=== PATIENT | female | born 1955 | race Two or more races ===

== ENCOUNTER 2017-02-17 22:15 | Emergency (ER) | payer MEDICARE, OTHER ==
[~2017-02-17] VITALS: Ht 165.1 cm; Wt 55.3 kg
--- NOTE | 2017-02-17 22:20 | NUR ---
PT BREATHING EFFORTLESSLY ON ROOM AIR, PT PER EMS HAD A SYNCOPAL EPSIODE IN THE BATHROOM PRIOR TO ARRIVAL, PT HAS A LAC OVER HER LEFT EYEBROW AND PER EMS FAMILY STATES THEY SAW HER TAKE HER PAIN PILLS BUT PATIENT CANT RECOUNT HOW MANY SHE TOOK, PT ON MONITOR, IV PLACED, LABS DRAWN, MADE AWARE WILL CONTINUE TO MONITOR.
[2017-02-17] MEDS ORDERED: TDAP [DIPH/PERTUSSIS/TET] 0.5 ML VIAL IM ONE ×2 (22:30→23:40)
[2017-02-17] MEDS ORDERED: IV NS 0.9% 500 ML BAG IV ONE (22:30)
[2017-02-17 22:58] LABS: BASOPHILS % (AUTO) 0.8 % (0.0-2.0); EOSINOPHILS % (AUTO) 1.9 % (0.0-6.0); HEMATOCRIT 37 % (33-45); HEMOGLOBIN 12.5 g/dL (11.5-14.8); LYMPHOCYTES # (AUTO) 1.3 /CMM (0.8-4.8); LYMPHOCYTES % (AUTO) 56.3 % (20.0-44.0); MEAN CORPUSCULAR HEMOGLOBIN 34 PG (26.0-33.0); MEAN CORPUSCULAR HGB CONC 34 g/dl (31.0-36.0); MEAN CORPUSCULAR VOLUME 99 fL (82-100); MONOCYTES # (AUTO) 0.3 /CMM (0.1-1.30); MONOCYTES % (AUTO) 12.4 % (2.0-12.0); NEUTROPHILS # (AUTO) 0.7 /CMM (1.8-8.9); NEUTROPHILS % (AUTO) 28.6 % (43.0-81.0); PLATELET COUNT (AUTO) 118 /CMM (150-450); RDW COEFFICIENT OF VARIATION 14.4 (11.5-15.0); RED BLOOD CELL COUNT(AUTO) 3.72 MIL/uL (4.0-5.2); WHITE BLOOD COUNT (AUTO) 2.3 K/uL (4.3-11.0)
--- NOTE | 2017-02-17 23:16 | NUR ---
PT TO CT.
[2017-02-17 23:23] LABS: TROPONIN I < 0.017 ng/mL (0.00-0.056)
[2017-02-17 23:25] LABS: ALANINE AMINOTRANSFERASE 14 U/L (12-78); ALBUMIN 3.2 g/dL (3.4-5.0); ALCOHOL, BLOOD < 3 mg/dL (0-0); ALKALINE PHOSPHATASE 83 U/L (46-116); ASPARTATE AMINOTRANSFERASE 14 U/L (15-37); BILIRUBIN,DIRECT 0.1 mg/dL (0.0-0.2); BILIRUBIN,TOTAL 0.2 mg/dL (0.2-1.0); CALCIUM, SERUM 8.9 mg/dL (8.5-10.1); CARBON DIOXIDE 28 mmol/L (21-32); CHLORIDE 105 mmol/L (98-107); GLUCOSE 168 mg/dL (74-106); POTASSIUM 4.1 mmol/L (3.5-5.1); SODIUM SERUM 138 mmol/L (136-145); TOTAL PROTEIN, SERUM 6.1 g/dL (6.4-8.2); UREA NITROGEN, BLOOD 31 mg/dL (7-18)
[2017-02-17 23:52] LABS: LYMPHOCYTES % (MANUAL) 57 % (16-48); MONOCYTES % (MANUAL) 12 % (0-11.0); NEUTROPHILS % (MANUAL) 31 (42-76)
[2017-02-18 00:08] LABS: INR 0.96 (0.87-1.13)
--- NOTE | 2017-02-18 00:30 | NUR ---
PT SLEEPING IN NAD, VSS WILL CONTINUE TO MONITOR.
--- NOTE | 2017-02-18 02:51 | NUR ---
PT IS AT BEDSIDE, PT VSS, PT IS STARTING TO IMPROVE AND WAKE UP, PT REFUSING TO GIVE URINE AT THIS TIME, MD MADE AWARE WILL CONTINUE TO MONITOR.
--- NOTE | 2017-02-18 03:12 | NUR ---
PT BP MADE AWARE TO MD ARBOLEDA, A BOLUS OR NS WAS ORDERED AND GIVEN WILL CONTINUE TO MONITOR.
[2017-02-18] MEDS ORDERED: IV NS 0.9% 1,000 ML BAG IV ONE (04:00)
--- NOTE | 2017-02-18 05:23 | NUR ---
PT SLEEPING IN NO APPARENT DISTRESS, VSS ON MONITOR, AT BEDSIDE MD MADE AWARE WILL CONTINUE TO MONITOR.
--- NOTE | 2017-02-18 07:13 | NUR ---
PT A/OX4 BREATHING EFFORTLESSLY ON ROOM AIR, PT IS STANDING ON HER OWN AND WALKING WITH A STEADY GAIT, PT AT BEDSIDE, PT GIVEN ACI AND TOLD TO NOT DRIVE AT THIS MOMENT, PT AND VERBALIZED UNDERSTANDNIG AND WAS WHEELCHAIRED OUT OF THE ER.
[2017-02-18 07:15] VITALS: BP 110/60
== END 2017-02-18 07:16 | disposition home or self-care (01) ==
LOC: ER 22:20
DX: S00.81XA Abrasion of other part of head, initial encounter (principal); R55 Syncope and collapse; R41.82 Altered mental status, unspecified; E86.0 Dehydration; T50.995A Adverse effect of other drugs, medicaments and biological substances, initial encounter; D72.819 Decreased white blood cell count, unspecified; I10 Essential (primary) hypertension; F10.129 Alcohol abuse with intoxication, unspecified; Z88.0 Allergy status to penicillin; X58.XXXA Exposure to other specified factors, initial encounter; Y93.89 Activity, other specified; Y92.89 Other specified places as the place of occurrence of the external cause; Y99.8 Other external cause status
CPT/HCPCS: 36415; 70450; 70486; 71010; 72125; 72170; 80048; 80076; 80164; 82962; 84484; 85025; 85730; 90471; 90715; 93005; 96360; 99285; A4606; G0480; J7040; Z7610